=== PATIENT | male | born 1985 | race Caucasian/White ===

== ENCOUNTER 2020-11-03 08:08 | Inpatient (IN) | payer MEDICAID ==
[~2020-11-03] VITALS: Ht 175.3 cm; Wt 92.1 kg
[2020-11-03] MEDS ORDERED: ZOLPIDEM TARTRATE 10 MG TABLET PO PRN (09:45)
[2020-11-03 16:27] VITALS: BP 100/68
[2020-11-03] MEDS: HALOPERIDOL 5 MG TABLET PO PRN (16:41)
[2020-11-03] MEDS: LORazepam 2 MG TABLET PO PRN (16:41)
[2020-11-03] MEDS: NICOTINE 21 MG/24 HOUR PATCH TD SCH (21:03)
[2020-11-03] MEDS ORDERED: PETROLATUM,WHITE 28 GM JELLY TP PRN (23:45)
[2020-11-03] MEDS ORDERED: ONDANSETRON HCL 4 MG TABLET PO PRN (23:45)
[2020-11-03] MEDS ORDERED: DOCUSATE SODIUM 100 MG CAPSULE PO PRN (23:45)
[2020-11-03] MEDS ORDERED: MAG HYDROX/AL HYDROX/SIMETH ES 30 ML SUSPENSION UDCUP PO PRN (23:45)
[2020-11-03] MEDS ORDERED: LOPERAMIDE HCL 2 MG CAPSULE PO PRN (23:45)
[2020-11-03] MEDS ORDERED: MAGNESIUM HYDROXIDE SUSPENSION 30 ML UDCUP PO PRN (23:45)
[2020-11-03] MEDS ORDERED: OMEPRAZOLE 20 MG CAPSULE PO PRN (23:45)
[2020-11-03] MEDS ORDERED: CloNIDine HCL 0.1 MG TABLET PO PRN (23:45)
[2020-11-03] MEDS ORDERED: BENZOCAINE/MENTHOL LOZENGE PO PRN (23:45)
[2020-11-03] MEDS ORDERED: IBUPROFEN 600 MG TABLET PO PRN (23:45)
[2020-11-03] MEDS ORDERED: BACITRACIN 28 GM OINTMENT TP PRN (23:45)
[2020-11-03] MEDS ORDERED: ACETAMINOPHEN 325 MG TABLET PO PRN (23:45)
[2020-11-03] MEDS ORDERED: ALBUTEROL SULFATE HFA 90 MCG/PUFF 8 GM INHALER IH PRN (23:45)
[2020-11-04 00:02] VITALS: BP 110/75
[2020-11-04 07:34] LABS: BASOPHILS % (AUTO) 0.4 % (0.0-2.0); EOSINOPHILS % (AUTO) 1.4 % (1.0-6.0); HEMATOCRIT 43.9 % (41-53); HEMOGLOBIN 14.8 g/dL (13.5-17.5); LYMPHOCYTES # (AUTO) 2.4 K/uL (1.0-4.8); LYMPHOCYTES % (AUTO) 41.9 % (22.0-44.0); MEAN CORPUSCULAR HEMOGLOBIN 28.6 pg (26.0-34.0); MEAN CORPUSCULAR HGB CONC 33.7 G/dL (31.0-37.0); MEAN CORPUSCULAR VOLUME 85 fL (80-100); MONOCYTES # (AUTO) 0.5 K/uL (0.1-1.0); NEUTROPHILS # (AUTO) 2.8 K/uL (1.8-7.7); NEUTROPHILS % (AUTO) 48.3 % (40.0-70.0); PLATELET COUNT (AUTO) 233 K/uL (150-450); RED BLOOD CELL COUNT(AUTO) 5.17 MIL/uL (4.50-5.90); RED CELL DISTRIBUTION WIDTH 13.5 % (11.5-14.5)
[2020-11-04 07:41] LABS: HEMOGLOBIN A1C 5.2 % (3.8-5.6)
[2020-11-04 07:55] LABS: ALANINE AMINOTRANSFERASE 24 U/L (12-78); ALBUMIN 3.5 g/dL (3.4-5.0); ALKALINE PHOSPHATASE 77 U/L (46-116); ANION GAP 7 mmol/L (8-16); ASPARTATE AMINOTRANSFERASE 12 U/L (15-37); BILIRUBIN,TOTAL 0.4 mg/dL (0.1-1.0); CALCIUM, TOTAL 8.9 mg/dL (8.8-10.5); CARBON DIOXIDE 29 mmol/L (22-29); CHLORIDE 105 mmol/L (98-107); CHOLESTEROL 171 mg/dL (131-200); CREATININE 0.99 mg/dL (0.60-1.30); FREE T4 (FREE THYROXINE) 1.17 ng/dL (0.76-1.46); GLOMERULAR FILTR. RATE CALC > 60 mL/min (>60); GLUCOSE,RANDOM 94 mg/dL (70-110); HDL CHOLESTEROL 34 mg/dL (40-60); LDL CHOL (CALC.) 121 mg/dL (0-130); POTASSIUM 4.2 mmol/L (3.5-5.1); SODIUM SERUM 141 mmol/L (136-145); THYROID STIMULATING HORMONE 0.76 uIU/mL (0.36-3.74); TOTAL PROTEIN, SERUM 6.6 g/dL (6.4-8.2); TRIGLYCERIDES 78 mg/dL (15-150); UREA NITROGEN, BLOOD 11 mg/dL (7-18)
[2020-11-04] MEDS: NICOTINE 21 MG/24 HOUR PATCH TD SCH (08:05)
[2020-11-04] MEDS: SERTRALINE HCL 50 MG TABLET PO SCH (08:05)
[2020-11-04] MEDS: LORazepam 2 MG TABLET PO PRN ×3 (08:05→18:10)
[2020-11-04 08:18] VITALS: BP 105/74
[2020-11-04] MEDS: HALOPERIDOL 5 MG TABLET PO PRN ×2 (13:16→18:10)
[2020-11-04 21:31] VITALS: BP 98/60
[2020-11-05 08:24] VITALS: BP 108/69
[2020-11-05] MEDS: RisperiDONE 3 MG TABLET PO SCH ×2 (08:48→17:52)
[2020-11-05] MEDS: SERTRALINE HCL 50 MG TABLET PO SCH (08:48)
[2020-11-05] MEDS: NICOTINE 21 MG/24 HOUR PATCH TD SCH (08:49)
[2020-11-05] MEDS: LORazepam 2 MG TABLET PO PRN (14:25)
[2020-11-05] MEDS ORDERED: LORazepam 2 MG/ML VIAL ONE (15:48)
[2020-11-05] MEDS ORDERED: LORazepam 2 MG/ML VIAL IM ONE (16:00)
[2020-11-05] MEDS ORDERED: DiphenhydrAMINE HCL 50 MG/ML VIAL IM ONE (16:00)
[2020-11-05] MEDS ORDERED: HALOPERIDOL LACTATE 5 MG/ML VIAL IM ONE (16:00)
[2020-11-05 16:02] VITALS: BP 112/82
[2020-11-06] MEDS: RisperiDONE 3 MG TABLET PO SCH ×2 (08:07→16:56)
[2020-11-06] MEDS: SERTRALINE HCL 50 MG TABLET PO SCH (08:07)
[2020-11-06] MEDS: LORazepam 2 MG TABLET PO PRN ×2 (08:07→16:55)
[2020-11-06] MEDS: NICOTINE 21 MG/24 HOUR PATCH TD SCH (08:07)
[2020-11-06 08:24] VITALS: BP 103/77
[2020-11-06 16:02] VITALS: BP 106/62
[2020-11-06] MEDS: HALOPERIDOL 5 MG TABLET PO PRN (16:55)
[2020-11-07 06:03] VITALS: BP 108/71
[2020-11-07 08:00] VITALS: BP 103/74
[2020-11-07] MEDS: SERTRALINE HCL 50 MG TABLET PO SCH (08:01)
[2020-11-07] MEDS: LORazepam 2 MG TABLET PO PRN ×2 (08:01→16:32)
[2020-11-07] MEDS: NICOTINE 21 MG/24 HOUR PATCH TD SCH (08:01)
[2020-11-07] MEDS: RisperiDONE 3 MG TABLET PO SCH ×2 (08:01→16:32)
[2020-11-07 16:02] VITALS: BP 114/77
[2020-11-07] MEDS: HALOPERIDOL 5 MG TABLET PO PRN (16:32)
[2020-11-08] MEDS: SERTRALINE HCL 50 MG TABLET PO SCH ×2 (08:03→08:07)
[2020-11-08] MEDS: NICOTINE 21 MG/24 HOUR PATCH TD SCH (08:03)
[2020-11-08] MEDS: RisperiDONE 3 MG TABLET PO SCH ×2 (08:03→08:07)
[2020-11-08 08:56] VITALS: BP 107/74
[2020-11-08] MEDS ORDERED: SERT-158 PO (11:36)
[2020-11-08] MEDS ORDERED: RISP3TAB35 PO (11:36)
== END 2020-11-08 14:00 | disposition home or self-care (01) | DRG 750 ==
LOC: B3A 10:09
PROVIDERS: ADMIT Psychiatry & Neurology Psychiatry; ATTEND Psychiatry & Neurology Psychiatry
DX: F20.0 Paranoid schizophrenia (principal); F10.10 Alcohol abuse, uncomplicated; F41.9 Anxiety disorder, unspecified; K59.00 Constipation, unspecified; G47.00 Insomnia, unspecified
CPT/HCPCS: 80053; 80061; 83036; 84436; 84439; 84443; 85025; J1200; J1630; J2060